=== PATIENT | male | born 1960 | race Caucasian/White ===

== ENCOUNTER → 2017-10-12 | Outpatient (CLI) | payer BC | END | disposition home or self-care (01) | LOC: US 12:49 | DX: I82.890 Acute embolism and thrombosis of other specified veins (principal) | CPT/HCPCS: 93971 ==

== ENCOUNTER → 2020-08-14 | Outpatient (CLI) | payer BC ==
--- NOTE | 2020-08-14 13:59 | EEG ---
DATE OF SERVICE: 08/14/2020 ELECTROENCEPHALOGRAM REPORT EEG NUMBER: [id number]. OBJECTIVE: The patient is a 59-year-old male with myoclonic jerks. DESCRIPTION: This is a digital study. Electrodes were placed according to the international 10-20 system. Bipolar and referential montages, are available. Activation procedures typically include hyperventilation and intermittent photic stimulation. INTERPRETATION: The waking background consists of 8-9 Hz, 50-100 microvolt activity, symmetrically distributed over parietooccipital regions and reactive to eye opening. Hyperventilation and intermittent photic stimulation are noncontributory. Stage I sleep was achieved with normal electroencephalogram patterns. IMPRESSION: This electroencephalogram with the patient awake and asleep is within normal limits. There is no focal, paroxysmal, or epileptiform activity. Thank you for letting us help with the patient's care. LAYLA DR: Michelle TID: [id number] CC: Jada Martinez NP
== END ==
LOC: RT 06:35
PROVIDERS: ATTEND Nurse Practitioner Family
DX: G25.3 Myoclonus (principal)
CPT/HCPCS: 95816